=== PATIENT | female | born 1970 | race Caucasian/White ===

== ENCOUNTER 2020-07-26 07:28 | Day surgery (SDC) | payer OTHER ==
[~2020-07-26] VITALS: Ht 170.2 cm; Wt 156.0 kg
[~2020-07-26 07:28] MED LIST: ALIVE WOMENS 501 CHW PO; PROAIR HFA IN; VITAMIN D2000 UNI1 PO; ZESTRIL30 MG PO
[2020-07-26 10:02] VITALS: BP 100/55
== END 2020-07-26 10:19 | disposition home or self-care (01) | DRG 951 ==
LOC: ENDO 07:28 → ORM 09:30 → ENDO 09:30
PROVIDERS: ATTEND Internal Medicine Gastroenterology
PROC: 0DBN8ZX Excision of Sigmoid Colon, Via Natural or Artificial Opening Endoscopic, Diagnostic (ICD-10-PCS; principal; 2020-07-26)
PROC: 0DBL8ZX Excision of Transverse Colon, Via Natural or Artificial Opening Endoscopic, Diagnostic (ICD-10-PCS; 2020-07-26)
PROC: 0DBP8ZX Excision of Rectum, Via Natural or Artificial Opening Endoscopic, Diagnostic (ICD-10-PCS; 2020-07-26)
DX: Z12.11 Encounter for screening for malignant neoplasm of colon (principal); C18.7 Malignant neoplasm of sigmoid colon; D12.3 Benign neoplasm of transverse colon; K62.1 Rectal polyp; K64.4 Residual hemorrhoidal skin tags; K57.30 Diverticulosis of large intestine without perforation or abscess without bleeding; I10 Essential (primary) hypertension; Z20.828 Contact with and (suspected) exposure to other viral communicable diseases